=== PATIENT | female | born 1995 | race Caucasian/White ===

== ENCOUNTER 2022-11-12 23:23 | Emergency (ER) | payer OTHER, SELFPAY ==
--- NOTE | ~2022-11-12 | US_ITS ---
EXAMINATION: US PELVIS CLINICAL INFORMATION: Right lower quadrant pain for 3 days. LMP 10/29/2022 COMPARISON: None available. TECHNIQUE: Ultrasound of the pelvis is performed using both transabdominal and transvaginal transducers along with Doppler. Transvaginal imaging is performed due to inadequate visualization transabdominally. FINDINGS: Uterus: The uterus is anteverted and measures 8.9 x 4.4 x 6.6 cm. The double wall endometrial thickness is 14 mm. The uterus is smooth in contour and has normal myometrial echogenicity. No visible fibroid. Adnexa: Both ovaries are visualized. There is normal color flow to the adnexa. There is no ovarian torsion. There is no pelvic ascites or fluid collection. Right ovary measures 3.2 x 2.8 x 2.5 cm. Left ovary measures 4.3 x 1.8 x 2.1 cm. Small pelvic free fluid. US/US pelvic and transvaginal IMPRESSION: Unremarkable pelvic ultrasound.
[2022-11-12 23:39] VITALS: BP 121/85; PULSE 95; RESP 20; TEMP 36.7; O2SAT 100; BMI 22.6
[2022-11-13 00:24] VITALS: BP 124/80; PULSE 96; RESP 16; TEMP 36.6; O2SAT 98
--- OUTSIDE RECORDS SUMMARY | 2022-11-13 00:24 | XMS_ITS | Continuity of Care Document ---
Author Name Unknown Organization [facility] Address [address] [place] [address]- Care Team Providers Care Surgical Dressing Maker Name Role Phone Selene THOMPSON, Casey Hopson Primary Care Physician [phone] Encounter [facility] [place] Date(s): 04/26/22 - 05/26/[address] [address]- Allergies, Adverse Reactions, Alerts Substance Reaction Severity Status Seafood Hives Active Immunizations Given and Recorded Vaccine Date Status Refusal Reason influenza virus vaccine, inactivated 03/10/20 Give n tetanus/diphtheria/pertussis, acel(Tdap) 02/10/20 Given tetanus/diphtheria/pertussis, acel(Tdap) 07/07/16 Given Medications Colace sodium 100 mg oral capsule 100 mg, 1, capsule, By Mouth, 2 times a day, PRN, # 20 capsule, Refills 0, Tot. Refills 0, Maintenance, for constipation, 08/17/20 14:48:00 EDT, Route to Pharmacy Electronically, [facility]/pharmacy #[id number], Partial fill upon patient request if the prescriptio... Start Date: 08/17/20 Status: Ordered fluconazole 150 mg oral tablet 1 tablet = 150 mg, By Mouth, Once, epeat dose if still having symptoms in 72 hours, # 2 tablet, 0 Refills, Soft Stop, 05/05/22 15:03:00 EST, Tablet, [id number], Partial fill upon patient request if the prescription is for a schedule II opioid... Start Date: 05/05/22 Status: Ordered ibuprofen 800 mg oral tablet 800 mg, 1, tablet, By Mouth, Every 6 hours, not to exceed 3200 mg/day with food or milk, # 40 tablet, Refills 0, Tot. Refills 0, Maintenance, 08/17/20 14:48:00 EDT, Route to Pharmacy Electronically, [facility]/pharmacy #[id number], Partial fill upon patient reque... Start Date: 08/17/20 Status: Ordered oxyCODONE 5 mg oral tablet 5 mg, 1, tablet, By Mouth, Every 6 hours, PRN, for post-operative pain if needed, # 10 tablet, Refills 0, Tot. Refills 0, Maintenance, as needed for pain, 08/17/20 14:48:00 EDT, Route to [facility]acy [facility]ically, [id number], Partial fill upon p... Start Date: 08/17/20 Status: Ordered Multivitamins with Folic Acid 1 mg oral tablet 1 tablet, By Mouth, Daily, # 90 tablet, 3 Refills, Maintenance, 11/12/19 11:02:00 EDT, Tablet, [id number], 1 tablet By Mouth Daily, 151.2, cm, 06/24/19 9:10:00 EST, Height, 70.5, kg, 197:15:00 EST, Dry Weight Start Date: 11/12/19 Status: Ordered Multivitamins with Vitamin B Complex, Vitamin C, Minerals and L- Methylfolate oral capsule 1 capsule, By Mouth, Daily, # 30 capsule, 0 Refills, Maintenance, 03/19/19 18:45:22 EDT, Capsule, 1capsule By Mouth Daily Start Date: 03/19/19 Status: Ordered Tylenol 325 mg oral tablet 650 mg, 2, tablet, By Mouth, Every 4 hours, PRN, not to exceed 4000 mg/day, # 120 tablet, Refills 0, Tot. Refills 0, Maintenance, for pain, 08/17/20 14:48:00 EDT, Route to Pharmacy Electronically, [id number], Partial fill upon patient request... Start Date: 08/17/20 Status: Ordered Problem List Condition Confirmation Course Effective Dates Status Health St atus Informant of family member Confirmed Active H/O Hypothyroid 1 Confirmed Active Maternal varicella, non-immune Confirmed Active 1Patient states hypothyroid with past , bloodwork done PCP and states it is resolved. Not currently on medication. Social History Social History Type Response Smoking Status Never (less than 100 in lifetime) entered on: 12/01/19 Sex Patient Care team information Care Team Personnel Name: Stephy Alcazar NP Position: Reference Physician Member Role: Primary Care Nurse Care Team Related Persons Name: KATELIN SINGLETONET Address: home [address] [place] [address] Name: NITESH RODRIGUEZ Address: [address] Address: [address] Name: CLAY SANCHEZ Address: [address] [place] [address]
--- OUTSIDE RECORDS SUMMARY | 2022-11-13 00:24 | XMS_ITS | Continuity of Care Document ---
Author Name Unknown Organization [facility] Address [address] [place] [address]- Care Team Providers Care Nutrition Manager Name Role Phone Not on Staff, PCP Primary Care Physician Unavail able Encounter [facility] Date(s): 05/27/19 - 05/27/[address] [address]- [facility] Discharge Disposition: A-D/C Home Attending Physician: Annia Arango MD Admitting Physician: Annia Arango MD Referring Physician: Annia Arango MD Allergies, Adverse Reactions, Alerts Substance Reaction Severity Status Seafood Active Immunizations Given and Recorded Vaccine Date Status Refusal Reason tetanus/diphtheria/pertussis, acel(Tdap) 07/07/16 Given Medications levothyroxine 0.05 mg oral tablet 1 tablet = 50 mcg, By Mouth, Daily, # 90 tablet, 0 Refills, Maintenance, 05/12/19 11:11:46 EST, Tablet, 148, cm, 05/12/19 10:30:25 EST, Height, 68, kg, 10/22/18 23:05:01 EDT, Dry Weight Start Date: 05/12/19 Status: Ordered Multivitamins with Vitamin B Complex, Vitamin C, Minerals and L- Methylfolate oral capsule 1 capsule, By Mouth, Daily, # 30 capsule, 0 Refills, Maintenance, 03/19/19 18:45:22 EDT, Capsule, 1capsule By Mouth Daily Start Date: 03/19/19 Status: Ordered Problem List Condition Effective Dates Status Health Status Inform ant Acute lower UTI(Confirmed) Active Ovarian cyst(Confirmed) Active First trimester bleeding(Confirmed) Active Hypothyroid(Confirmed) Active Maternal varicella, non-immune(Confirmed) Active Vital Signs Most recent to oldest [Reference Range]: 1 Height 148 cm (05/27/19 5:08 PM) Oxygen Saturation [94-100 %] 100 % (05/27/19 5:08 PM) Pulse Rate [55-90 bpm] 90 bpm (05/27/19 5:08 PM) Blood Pressure [90-138/55-84 mm Hg] 120/ 85mm Hg (05/27/19 5:08 PM) Respiratory Rate [16-30 br/min] 18 br/mi n (05/27/19 5:08 PM) Temperature [96.8-100.4 DegF] 98.2 DegF (05/27/19 5:08 PM) Mode of Delivery (Oxygen) Room air (05/27/19 5:08 PM) Blood pressure sites Arm, left (05/27/19 5:08 PM) Temperature Route Oral (05/27/19 5:08 PM) Social History Social History Type Response Smoking Status Never (less than 100 in lifetime); Tobacco user in household: No entered on: 04/16/18 Sex Female
--- OUTSIDE RECORDS SUMMARY | 2022-11-13 00:24 | XMS_ITS | Continuity of Care Document ---
Author Name Unknown Organization [facility] Address [address] [place] [address]- Care Team Providers Care Court Magistrate Name Role Phone Brenda Abdi MD Primary Care Physician Encounter [facility] [place] Date(s): 06/24/19 - 10/22/[address] [address]- [facility] Attending Physician: Not on Staff, Attending MD Referring Physician: Brenda Abdi MD Allergies, Adverse Reactions, Alerts Substance Reaction Severity Status Seafood Active Immunizations Given and Recorded Vaccine Date Status Refusal Reason tetanus/diphtheria/pertussis, acel(Tdap) 07/07/16 Given Medications Apri 0.15 mg-0.03 mg oral tablet 1 tablet, By Mouth, Daily, # 28 tablet, 11 Refills, Maintenance, 06/24/19 9:34:00 EST, Tablet, [id number], 1 tablet By Mouth Daily,x28 days, 151.2, cm, 06/24/19 9:10:00 EST, Height, 70.5, kg,05/28/19 7:15:00 EST, Dry Weight Start Date: 06/24/19 Stop Date: 05/25/20 Status: Ordered Multivitamins with Vitamin B Complex, Vitamin C, Minerals and L- Methylfolate oral capsule 1 capsule, By Mouth, Daily, # 30 capsule, 0 Refills, Maintenance, 03/19/19 18:45:22 EDT, Capsule, 1capsule By Mouth Daily Start Date: 03/19/19 Status: Ordered Problem List Condition Effective Dates Status Health Status Inform ant Acute lower UTI(Confirmed) Active Contraception management(Confirmed) Active Ovarian cyst(Confirmed) Active First trimester bleeding(Confirmed) Active Hypothyroid(Confirmed) Active Recurrent loss(Confirmed) Active Maternal varicella, non-immune(Confirmed) Active Social History Social History Type Response Smoking Status Never (less than 100 in lifetime); Tobacco user in household: No entered on: 04/16/18 Sex Female
--- OUTSIDE RECORDS SUMMARY | 2022-11-13 00:24 | XMS_ITS | Continuity of Care Document ---
Author Name Unknown Organization [facility] Address [address] [place] [address]- Care Team Providers Care Private Detective Name Role Phone Selene THOMPSON, Casey Hopson Primary Care Physician Encounter [facility] [place] Date(s): 05/02/22 - 06/01/[address] [address]- Attending Physician: Admsavita, Bo8 Admitting Physician: AdmtrVamsi Referring Physician: Admtr, Ar8 Allergies, Adverse Reactions, Alerts Substance Reaction Severity [...] 08/17/20 14:48:00 EDT, Route to Pharmacy Electronically, [facility]/pharmacy #[id number], Partial fill upon patient request if the prescriptio... Start Date: 08/17/20 Status: Ordered fluconazole 150 mg oral tablet 1 tablet = 150 mg, By Mouth, Once, epeat dose if still having symptoms in 72 hours, # 2 tablet, 0 Refills, Soft Stop, 05/05/22 15:03:00 EST, Tablet, [id number], Partial fill upon patient request if the prescription is for a schedule II opioid... Start Date: 05/05/22 Status: Ordered ibuprofen 800 mg oral tablet 800 mg, 1, tablet, By Mouth, Every 6 hours, not to exceed 3200 mg/day with food or milk, # 40 tablet, Refills 0, Tot. Refills 0, Maintenance, 08/17/20 14:48:00 EDT, Route to Pharmacy Electronically, [facility]/pharmacy #[id number], Partial fill upon patient reque... [...] cm, 06/24/19 9:10:00 EST, Height, 70.5, kg, :15:00 EST, Dry Weight Start Date: 11/12/19 Status: [...] 08/17/20 14:48:00 EDT, Route to Pharmacy Electronically, [facility]/pharmacy #[id number], Partial fill upon patient request... Start [...] Care Nurse Care Team Related Persons Name: SINGLETON FEDERICO Address: [address] [place] [address] Name: NITESH RODRIGUEZ Address: [address] Address: [address] Name: CLAY SANCHEZ Address: [address] [place] [address]
--- OUTSIDE RECORDS SUMMARY | 2022-11-13 00:24 | XMS_ITS | Continuity of Care Document ---
Author Name Unknown Organization [facility] Address [address] [place] [address]- Care Team Providers Care Net Lead Developer Name Role Phone Brenda Abdi MD Primary Care Physician [phone] Encounter [facility] Date(s): 12/15/19 - 01/14/20 [facility] [address] [place] [address]- [facility] Attending Physician: Corey Montez MD Admitting Physician: Corey Montez MD Referring Physician: Tanja Nova CNM Allergies, Adverse Reactions, Alerts Substance Reaction Severity Status Seafood Hives Active Immunizations Given and Recorded Vaccine Date Status Refusal Reason tetanus/diphtheria/pertussis, acel(Tdap) 07/07/16 Given Medications Multivitamins with Folic Acid 1 mg oral [...] Effective Dates Status Health Status Inform ant H/O Hypothyroid(Confirmed) 1 Active Recurrent loss(Confirmed) Active Maternal varicella, non-immune(Confirmed) Active 1Patient states hypothyroid with past , bloodwork done PCP and states it is resolved. Not currently on medication. Social History Social History Type Response Smoking Status Never (less than 100 in lifetime) entered on: 12/01/19 Sex Female
--- OUTSIDE RECORDS SUMMARY | 2022-11-13 00:24 | XMS_ITS | Continuity of Care Document ---
Author Name Unknown Organization [facility] Address [address] [place] [address]- Care Team Providers Care Technical Product Manager Name Role Phone Brenda Abdi MD Primary Care Physician En[place] [facility] [place] Date(s): 09/18/19 - 01/16/20 [facility] [address] [address]- [facility] Attending Physician: Not on Staff, Attending MD [...]
--- OUTSIDE RECORDS SUMMARY | 2022-11-13 00:25 | XMS_ITS | Continuity of Care Document ---
Author Name Unknown Organization [facility] Address [address] [place] [address]- Care Team Providers Care Cylinder Die Machine Helper Name Role Phone Not on Staff, PCP Primary Care Physician Unavail able Encounter [facility] Date(s): 05/28/19 - 05/28/[address] [address]- [facility] Discharge Disposition: A-D/C Home Attending Physician: Mitch Cabrera MD Admitting Physician: Mitch Cabrera MD Referring Physician: Mitch Cabrera MD Allergies, Adverse Reactions, Alerts Substance Reaction [...] Most recent to oldest [Reference Range]: 1 2 3 Height 151.2 cm (05/28/19 7:15 AM) Weight 70.5 kg (05/28/19 7:15 AM) Oxygen Saturation [94-100 %] 99 % (05/28/19 9:15 AM) 99 % (05/28/19 9:00 AM) 98 % (05/28/19 8:45 AM) Pulse Rate [55-90 bpm] 74 bpm (05/28/19 9:15 AM) 74 bpm (05/28/19 9:00 AM) 76 bpm (05/28/19 8:45 AM) Body Mass Index [18.5-24.99] 30.84 *>HHI* (05/28/19 7:15 AM) Blood Pressure [90-138/55-84 mm Hg] 97/58mm Hg (05/28/19 9:15 AM) 97/58mm Hg (05/28/19 9:00 AM) 100/67mm Hg (05/28/19 8:45 AM) Respiratory Rate [16-30 br/min] 18 br/min (05/28/19 9:15 AM) 16 br/min (05/28/19 9:00 AM) 18 br/min (05/28/19 8:45 AM) Temperature [96.8-100.4 DegF] 97.1 DegF (05/28/19 8:30 AM) 97.4 DegF (05/28/19 8:12 AM) 97.8 DegF (05/28/19 7:15 AM) Liters per Minute 5 L/min (05/28/19 8:15 AM) 5 L/min (05/28/19 8:12 AM) Mode of Delivery (Oxygen) Room air (05/28/19 9:15 AM) Room air (05/28/19 9:00 AM) Room air (05/28/19 8:45 AM) Blood pressure sites Arm, left (05/28/19 7:15 AM) Temperature Route Temporal (05/28/19 8:30 AM) Temporal (05/28/19 8:12 AM) Temporal (05/28/19 7:15 AM) Dry Weight 70.5 kg (05/28/19 7:15 AM) Weight Obtained Via Standing scale (05/28/19 7:15 AM) Dry Weight Obtained Via Standing scale (05/28/19 7:15 AM) Social History Social History Type Response Smoking Status Never (less than 100 in lifetime); Tobacco user in household: No entered on: 04/16/18 Sex Female
--- OUTSIDE RECORDS SUMMARY | 2022-11-13 00:25 | XMS_ITS | Continuity of Care Document ---
Author Name Unknown Organization [facility] Address [address] [place] [address]- Care Team Providers Care Traffic Incident Management Manager Name Role Phone Selene THOMPSON, Casey Hopson Primary Care Physician [place] [facility] [place] 04/26/22 - 05/29/[address] [address]- Attending Physician: Not on Staff, Attending MD Allergies, Adverse Reactions, Alerts Substance Reaction [...] 08/17/20 14:48:00 EDT, Route to Pharmacy Electronically, [facility]/pharmacy #[id number], Partial fill upon patient request if the prescriptio... Start Date: 08/17/20 Status: Ordered fluconazole 150 mg oral tablet 1 tablet = 150 mg, By Mouth, Once, epeat dose if still having symptoms in 72 hours, # 2 tablet, 0 Refills, Soft Stop, 05/05/22 15:03:00 EST, Tablet, [facility]/pharmacy #[id number], Partial fill upon patient request if the prescription is for a schedule II opioid... Start Date: 05/05/22 Status: Ordered ibuprofen 800 mg oral tablet 800 mg, 1, tablet, By Mouth, Every 6 hours, not to exceed 3200 mg/day with food or milk, # 40 tablet, Refills 0, Tot. Refills 0, Maintenance, 08/17/20 14:48:00 EDT, Route to Pharmacy Electronically, [facility]/pharmacy #[id number], Partial fill upon patient reque... Start [...] 3 Refills, Maintenance, 11/12/19 11:02:00 EDT, Tablet, [facility]/pharmacy #[id number], 1 tablet By Mouth Daily, 151.2, cm, 06/24/19 9:10:00 EST, Height, 70.5, kg, 05/28/197:15:00 EST, Dry Weight Start Date: 11/12/19 Status: [...] 08/17/20 14:48:00 EDT, Route to Pharmacy Electronically, [facility]/pharmacy #[id number], Partial fill upon patient request... Start [...] Care Nurse Care Team Related Persons Name: FEDERICO SINGLETON Address: [address] [place] [address] Name: NITESH RODRIGUEZ Address: [address] Address: [address] Name: CLAY SANCHEZ Address: [address] [place] [address]
--- OUTSIDE RECORDS SUMMARY | 2022-11-13 00:25 | XMS_ITS | Continuity of Care Document ---
Author Name Unknown Organization [facility] Address [address] [place] [address]- Care Team Providers Care Carpenter Helper Maintenance Name Role Phone Brenda Abdi MD Primary Care Physician Encounter [facility] [place] Date(s): 12/15/19 - 01/14/20 [facility] [address] [place] [address]- [facility] Attending Physician: Vamsi Busch Admitting Physician: AdmVamsi barney Referring Physician: AdmtrVamsi Allergies, Adverse Reactions, Alerts Substance Reaction Severity Status Seafood Hives Active Immunizations Given and Recorded Vaccine Date Status Refusal Reason tetanus/diphtheria/pertussis, acel(Tdap) 07/07/16 Given Medications Multivitamins with Folic Acid 1 mg oral tablet 1 tablet, By Mouth, Daily, # 90 tablet, 3 Refills, Maintenance, 11/12/19 11:02:00 EDT, Tablet, [id number], 1 tablet By Mouth Daily, 151.2, cm, [...]
--- OUTSIDE RECORDS SUMMARY | 2022-11-13 00:25 | XMS_ITS | Continuity of Care Document ---
Author Name Unknown Organization [facility] Address [address] [place] [address]- Care Team Providers Care Picker Feeder Name Role Phone Brenda Abdi MD Primary Care Physician [place] [facility] [place] Date(s): 05/19/19 - 06/26/[address] [address]- [facility] Attending Physician: Not on Staff, Attending [...]
--- OUTSIDE RECORDS SUMMARY | 2022-11-13 00:25 | XMS_ITS | Continuity of Care Document ---
Author Name Unknown Organization [facility] Address [address] [place] [address]- Care Team Providers Care Sports Medicine Specialist Name Role Phone Not on Staff, PCP Primary Care Physician Unavail able Encounter [facility] Date(s): 06/07/19 - 06/07/[address] [address]- [facility] Attending Physician: Deborah THOMPSON, Mitch Mendoza Allergies, Adverse Reactions, Alerts Substance Reaction Severity [...] Active Hypothyroid(Confirmed) Active Maternal varicella, non-immune(Confirmed) Active Social History Social History Type Response Smoking Status Never (less than 100 in lifetime); Tobacco user in household: No entered on: 04/16/18 Sex Female
--- OUTSIDE RECORDS SUMMARY | 2022-11-13 00:25 | XMS_ITS | Continuity of Care Document ---
Author Name Unknown Organization [facility] Address [address] [place] [address]- Care Team Providers Care Olive Knocker Name Role Phone Brenda Abdi MD Primary Care Physician Encounter [facility] [place] Date(s): 06/09/19 - 06/19/19 [facility] [address] [address]- [facility] Attending Physician: Vamsi Busch Admitting Physician: Vamsi Busch Referring Physician: Vamsi Busch Allergies, Adverse Reactions, Alerts Substance Reaction Severity [...]
--- OUTSIDE RECORDS SUMMARY | 2022-11-13 00:25 | XMS_ITS | Continuity of Care Document ---
Author Name Unknown Organization [facility] Address [address] [place] [address]- Care Team Providers Care Microwave Radio Technician Name Role Phone Selene THOMPSON, Casey Hopson Primary Care Physician Encounter [facility] [place] Date(s): 04/10/22 - 05/10/[address] [address]- Allergies, Adverse Reactions, Alerts Substance Reaction Severity [...] 08/17/20 14:48:00 EDT, Route to Pharmacy Electronically, [facility]/pharmacy #[id number], Partial fill upon patient request if the prescriptio... Start Date: 08/17/20 Status: Ordered fluconazole 150 mg oral tablet 1 tablet = 150 mg, By Mouth, Once, epeat dose if still having symptoms in 72 hours, # 2 tablet, 0 Refills, Soft Stop, 05/05/22 15:03:00 EST, Tablet, [id number], Partial fill upon patient request if the prescription is for a schedule II opioid... Start Date: 05/05/22 Status: Ordered ibuprofen 800 mg oral tablet 800 mg, 1, tablet, By Mouth, Every 6 hours, not to exceed 3200 mg/day with food or milk, # 40 tablet, Refills 0, Tot. Refills 0, Maintenance, 08/17/20 14:48:00 EDT, Route to Pharmacy Electronically, [facility]/pharmacy #[id number], Partial fill upon patient reque... Start Date: 08/17/20 Status: Ordered metroNIDAZOLE 500 mg oral tablet 1 tablet = 500 mg, By Mouth, Every 12 hours, for 7 days, # 14 tablet, 0 Refills, Acute 05/12/22 15:03:00 EST, 05/05/22 15:03:00 EST, Tablet, [facility]/pharmacy #[id number], Partial fill upon patient request if the prescription is for a schedule II opioid drug., 1... Start Date: 05/05/22 Stop Date: 05/12/22 Status: Ordered oxyCODONE 5 mg oral tablet 5 mg, 1, tablet, By Mouth, Every 6 hours, PRN, for post-operative pain if needed, # 10 tablet, Refills 0, Tot. Refills 0, Maintenance, as needed for pain, 08/17/20 14:48:00 EDT, Route to Pharmacy Electronically, [facility]/pharmacy #[id number], Partial fill upon p... Start Date: 08/17/20 Status: Ordered Multivitamins with Folic Acid 1 mg oral tablet 1 tablet, By Mouth, Daily, # 90 tablet, 3 Refills, Maintenance, 11/12/19 11:02:00 EDT, Tablet, [facility]/pharmacy #[id number], 1 tablet By Mouth Daily, [...] 08/17/20 14:48:00 EDT, Route to Pharmacy Electronically, [facility]/pharmacy #[id number], Partial fill upon patient request... Start Date: [...] Persons Name: FEDERICO SINGLETON Address: home [address] [place] [address] Name: NITESH RODRIGUEZ Address: [address] Address: [address] Name: CLAY SANCHEZ Address: [address] [place] [address]
--- OUTSIDE RECORDS SUMMARY | 2022-11-13 00:25 | XMS_ITS | Continuity of Care Document ---
Author Name Unknown Organization [facility] Address [address] [address]- Care Team Providers Care Phd Internship Name Role Phone Selene THOMPSON, Casey Hopson Primary Care Physician Encounter [facility] [place] [facility] Date(s): 05/05/22 - 06/04/22 [facility] [address] [address]- Allergies, Adverse Reactions, Alerts Substance Reaction Severity [...] 08/17/20 14:48:00 EDT, Route to Pharmacy Electronically, [facility]/pharmacy #[id number], Partial fill upon patient request if the prescriptio... Start Date: 08/17/20 Status: Ordered fluconazole 150 mg oral tablet 1 tablet = 150 mg, By Mouth, Once, epeat dose if still having symptoms in 72 hours, # 2 tablet, 0 Refills, Soft Stop, 05/05/22 15:03:00 EST, Tablet, [id number], Partial fill upon patient request if the prescription is for a schedule II opioid... Start Date: 05/05/22 Status: Ordered ibuprofen 800 mg oral tablet 800 mg, 1, tablet, By Mouth, Every 6 hours, not to exceed 3200 mg/day with food or milk, # 40 tablet, Refills 0, Tot. Refills 0, Maintenance, 08/17/20 14:48:00 EDT, Route to Pharmacy Electronically, [facility]/pharmacy #[id number], Partial fill upon patient [...] 08/17/20 14:48:00 EDT, Route to Pharmacy Electronically, [facility]/pharmacy #[id number], Partial fill upon patient [...] Persons Name: SINGLETON FEDERICO Address: home [address] [place] [address] Name: NITESH RODRIGUEZ Address: [address] Address: [address] Name: CLAY SANCHEZ Address: [address] [place] [address]
--- OUTSIDE RECORDS SUMMARY | 2022-11-13 00:25 | XMS_ITS | Continuity of Care Document ---
Author Name Unknown Organization [facility] Address [address] [place] [address]- Care Team Providers Care Sample Color Maker Name Role Phone Brenda Abdi MD Primary Care Physician Encounter [facility] Date(s): 12/16/19 - [facility] [address] [address]- [facility] Allergies, Adverse Reactions, Alerts Substance Reaction Severity [...]
--- OUTSIDE RECORDS SUMMARY | 2022-11-13 00:25 | XMS_ITS | Continuity of Care Document ---
Author Name Unknown Organization [facility] Address [address] [place] [address]- Care Team Providers Care Frame Expander Name Role Phone Brenda Abdi MD Primary Care Physician [place] [facility] [place](s[place] 09/22/19 - 10/22/[address] [address]- [facility] Attending Physician: Vamsi Busch Admitting Physician: Vamsi Busch Referring Physician: Vamsi Busch Allergies, Adverse Reactions, Alerts Substance Reaction Severity Status Seafood Active Immunizations Given and Recorded Vaccine Date Status Refusal Reason tetanus/diphtheria/pertussis, acel(Tdap) 07/07/16 Given Medications Apri 0.15 mg-0.03 mg oral tablet 1 tablet, By Mouth, Daily, # 28 tablet, 11 Refills, Maintenance, 06/24/19 9:34:00 EST, Tablet, [id number], 1 tablet By Mouth Daily,x28 days, 151.2, [...]
--- OUTSIDE RECORDS SUMMARY | 2022-11-13 00:25 | XMS_ITS | Continuity of Care Document ---
Author Name Unknown Organization [facility] Address [address] [place] [phone]- Care Team Providers Care Senior Mortgage Loan Processor Name Role Phone Selene THOMPSON, Casey Hopson Primary Care Physician Encounter [facility] Date(s): 02/22/21 - 03/24/[address] [address]- Allergies, Adverse Reactions, Alerts Substance Reaction Severity [...] 14:48:00 EDT, Route to Pharmacy Electronically, [facility]/pharmacy #[id number], Partial fill upon patient request if the prescriptio... Start Date: 08/17/20 Status: Ordered ibuprofen 800 mg oral tablet 800 mg, 1, tablet, By Mouth, Every 6 hours, not to exceed 3200 mg/day with food or milk, # 40 tablet, Refills 0, Tot. Refills 0, Maintenance, 08/17/20 14:48:00 EDT, Route to Pharmacy Electronically, [facility]/pharmacy #[id number], Partial fill upon patient reque... Start Date: 08/17/20 Status: Ordered oxyCODONE 5 mg oral tablet 5 mg, 1, tablet, By Mouth, Every 6 hours, PRN, for post-operative pain if needed, # 10 tablet, Refills 0, Tot. Refills 0, Maintenance, as needed for pain, 08/17/20 14:48:00 EDT, Route to Pharmacy Electronically, [facility]/pharmacy #[id number], Partial fill upon p... Start Date: 08/17/20 Status: Ordered Multivitamins with Folic Acid 1 mg oral tablet 1 tablet, By Mouth, Daily, # 90 tablet, 3 Refills, Maintenance, 11/12/19 11:02:00 EDT, Tablet, [facility]/pharmacy #[id number], 1 tablet By Mouth Daily, 151.2, [...] 14:48:00 EDT, Route to Pharmacy Electronically, [facility]/pharmacy #[id number], Partial fill upon patient request... Start Date: 08/17/20 Status: Ordered Problem List Condition Effective Dates Status Health Status Inform ant of family member(Confirmed) Active H/O Hypothyroid(Confirmed) 1 Active Maternal varicella, non-immune(Confirmed) Active 1Patient states hypothyroid with past , bloodwork done PCP and states it is resolved. Not currently on medication. Social History Social History Type Response Smoking Status Never (less than 100 in lifetime) entered on: 12/01/19 Sex
--- OUTSIDE RECORDS SUMMARY | 2022-11-13 00:25 | XMS_ITS | Continuity of Care Document ---
Author Name Unknown Organization [facility] Address [address] [place] [address]- Care Team Providers Care Nuclear Fuels Research Engineer Name Role Phone Selene THOMPSON, Casey Hopson Primary Care Physician [place] [facility] [place] 08/30/20 - 09/29/[address] [address]- Attending Physician: Vamsi Busch Admitting Physician: AdmtrVamsi Referring Physician: Admtr, [id number] [...] [id number], Partial fill upon p... Start [...] family member(Confirmed) Active H/O Hypothyroid(Confirmed) 1 Active Request for sterilization(Confirmed) Active Maternal varicella, non-immune(Confirmed) Active 1Patient states hypothyroid with past , bloodwork done PCP and states it is resolved. Not currently on medication. Social History Social History Type Response Smoking Status Never (less than 100 in lifetime) entered on: 12/01/19 Sex
--- OUTSIDE RECORDS SUMMARY | 2022-11-13 00:25 | XMS_ITS | Continuity of Care Document ---
Author Name Unknown Organization [facility] Address [address] [place] [address]- Care Team Providers Care Refinisher Name Role Phone Brenda Abdi MD Primary Care Physician Encounter [facility] [place] Date(s): 06/05/19 - 10/03/[address] [address]- [facility] Attending Physician: Not on Staff, Attending [...]
--- OUTSIDE RECORDS SUMMARY | 2022-11-13 00:25 | XMS_ITS | Continuity of Care Document ---
Author Name Unknown Organization [facility] Address [address] [place] [address]- Care Team Providers Care Equipment Engineering Technician Name Role Phone Selene THOMPSON, Casey Hopson Primary Care Physician Encounter [facility] Date(s): 03/01/21 - 03/31/[address] [address] Attending Physician: AdmVamsi barney Admitting Physician: AdmtrVamsi Referring Physician: Admtr, [id number] [...] 08/17/20 14:48:00 EDT, Route to Pharmacy Electronically, [facility]/pharmacy #[id number], Partial fill upon patient request if the prescriptio... Start Date: 08/17/20 Status: Ordered ibuprofen 800 mg oral tablet 800 mg, 1, tablet, By Mouth, Every 6 hours, not to exceed 3200 mg/day with food or milk, # 40 tablet, Refills 0, Tot. Refills 0, Maintenance, 08/17/20 14:48:00 EDT, Route to Pharmacy Electronically, [facility]/pharmacy #[id number], Partial fill upon patient reque... Start Date: 08/17/20 Status: Ordered oxyCODONE 5 mg oral tablet 5 mg, 1, tablet, By Mouth, Every 6 hours, PRN, for post-operative pain if needed, # 10 tablet, Refills 0, Tot. Refills 0, Maintenance, as needed for pain, 08/17/20 14:48:00 EDT, Route to Pharmacy Electronically, [facility]/pharmacy #[id number], Partial fill upon p... Start [...] 08/17/20 14:48:00 EDT, Route to Pharmacy Electronically, [facility]/pharmacy #[id number], Partial fill upon patient request... [...]
--- OUTSIDE RECORDS SUMMARY | 2022-11-13 00:25 | XMS_ITS | Continuity of Care Document ---
Author Name Unknown Organization [facility] Address [address] [place] [phone]- Care Team Providers Care Civil Division Deputy Sheriff Name Role Phone Selene THOMPSON, Casey Hopson Primary Care Physician En[place] [facility] [place] Date(s): 04/10/22 - 05/15/[address] [address]- Attending Physician: Not on Staff, Attending MD [...] 08/17/20 14:48:00 EDT, Route to Pharmacy Electronically, [facility]/pharmacy #[id number], Partial fill upon patient request if the prescriptio... Start Date: 08/17/20 Status: Ordered fluconazole 150 mg oral tablet 1 tablet = 150 mg, By Mouth, Once, epeat dose if still having symptoms in 72 hours, # 2 tablet, 0 Refills, Soft Stop, 05/05/22 15:03:00 EST, Tablet, [facility]/pharmacy #[id number], Partial fill upon patient request if the prescription is for a schedule II opioid... Start Date: 05/05/22 Status: Ordered ibuprofen 800 mg oral tablet 800 mg, 1, tablet, By Mouth, Every 6 hours, not to exceed 3200 mg/day with food or milk, # 40 tablet, Refills 0, Tot. Refills 0, Maintenance, 08/17/20 14:48:00 EDT, Route to Pharmacy Electronically, [facility]/pharmacy #[id number], Partial fill upon patient reque... Start [...] 3 Refills, Maintenance, 11/12/19 11:02:00 EDT, Tablet, [facility]/pharmacy #[id number], 1 tablet By Mouth Daily, 151.2, [...] 08/17/20 14:48:00 EDT, Route to Pharmacy Electronically, [facility]/pharmacy #[id number], Partial fill upon patient request... Start [...] Persons Name: FEDERICO SINGLETON Address: [address] [place] [address] Name: NITESH RODRIGUEZ Address: [address] Address: home [address] Name: CLAY SANCHEZ Address: [address] [place] [address]
--- OUTSIDE RECORDS SUMMARY | 2022-11-13 00:25 | XMS_ITS | Continuity of Care Document ---
Author Name Unknown Organization [facility] Address [address] [place] [phone]- Care Team Providers Care Health Care Social Worker Name Role Phone Casey Morton MD Primary Care Physician Encounter [facility] Date(s): 08/17/20 - 08/17/[address] [address] Discharge Disposition: A-D/C Home Attending Physician: Karol Nicholson MD Admitting Physician: Karol Nicholson MD Referring Physician: Karol Nicholson MD Allergies, Adverse Reactions, Alerts Substance Reaction [...] 08/17/20 14:48:00 EDT, Route to Pharmacy Electronically, [facility]/pharmacy #[id number], Partial fill upon patient request if the prescriptio... Start Date: 08/17/20 Status: Ordered FENTanyl Inj 25 mcg, Injection, IV Push Slowly, Every 5 minutes for 8 doses/times, in PACU ONLY, Hold for: RR less than 8 or over-sedation, PRN for Pain , Moderate, Repeat until Pain Score is less than or equal to 2, Routine, 08/17/20 15:51:00 EDT, Stop date Limit... Start Date: 08/17/20 Stop Date: 08/18/20 Status: Discontinued ibuprofen 800 mg oral tablet 800 mg, 1, tablet, By Mouth, Every 6 hours, not to exceed 3200 mg/day with food or milk, # 40 tablet, Refills 0, Tot. Refills 0, Maintenance, 08/17/20 14:48:00 EDT, [id number] upon patient reque... Start Date: 08/17/20 Status: Ordered oxyCODONE 5 mg oral tablet 5 mg, 1, tablet, By Mouth, Every 6 hours, PRN, for post-operative pain if needed, # 10 tablet, Refills 0, Tot. Refills 0, Maintenance, as needed for pain, 08/17/20 14:48:00 EDT, [id number] fill upon p... Start Date: 08/17/20 Status: Ordered OxyCODONE IR Tablet 5 mg, Tablet, By Mouth, Every 4 hours, in PACU ONLY, if patient can tolerate PO, PRN for Pain , Mild, Routine, 08/17/20 15:51:00 EDT Start Date: 08/17/20 Stop Date: 08/18/20 Status: Discontinued Multivitamins with Folic Acid 1 mg oral tablet 1 tablet, By Mouth, Daily, # 90 tablet, 3 Refills, Maintenance, 11/12/19 11:02:00 EDT, Tablet, [facility]/pharmacy #[id number], 1 tablet By Mouth Daily, [...] 08/17/20 14:48:00 EDT, Route to Pharmacy Electronically, [facility]/pharmacy #[id number], Partial fill upon patient request... Start Date: 08/17/20 Status: Ordered Problem List Condition Effective Dates Status Health Status Inform ant of family member(Confirmed) Active H/O Hypothyroid(Confirmed) 1 Active Request for sterilization(Confirmed) Active Maternal varicella, non-immune(Confirmed) Active 1Patient states hypothyroid with past , bloodwork done PCP and states it is resolved. Not currently on medication. Vital Signs Most recent to oldest [Reference Range]: 1 2 3 Height 147 cm (08/17/20 2:31 PM) 147 cm (08/10/20 11:17 AM) Weight 68 kg (08/17/20 2:31 PM) 68 kg (08/10/20 11:17 AM) Oxygen Saturation [94-100 %] 100 % (08/17/20 6:30 PM) 100 % (08/17/20 6:15 PM) 98 % (08/17/20 6:00 PM) Pulse Rate [55-90 bpm] 87 bpm (08/17/20 2:31 PM) Body Mass Index [18.5-24.99] 31.47 *>HHI* (08/17/20 2:31 PM) 31.47 *>HHI* (08/10/20 11:17 AM) Blood Pressure [90-138/55-84 mm Hg] 106/69mm Hg (08/17/20 6:30 PM) 116/92mm Hg (08/17/20 6:15 PM) 105/72mm Hg (08/17/20 6:00 PM) Respiratory Rate [16-30 br/min] 20 br/min (08/17/20 6:30 PM) 18 br/min (08/17/20 6:25 PM) 17 br/min (08/17/20 6:05 PM) Temperature [96.8-100.4 DegF] 98.0 DegF (08/17/20 6:30 PM) 97.5 DegF (08/17/20 4:45 PM) 99.7 DegF (08/17/20 2:31 PM) Liters per Minute 5 L/min (08/17/20 5:30 PM) 5 L/min (08/17/20 5:15 PM) 5 L/min (08/17/20 5:00 PM) Mode of Delivery (Oxygen) Room air (08/17/20 6:30 PM) Room air (08/17/20 6:15 PM) Room air (08/17/20 6:00 PM) Temperature Route Temporal (08/17/20 6:30 PM) Temporal (08/17/20 4:45 PM) Temporal (08/17/20 2:31 PM) Dry Weight 66.7 kg (08/17/20 2:31 PM) 68 kg (08/10/20 11:17 AM) Weight Obtained Via Patient/family state d (08/10/20 11:17 AM) Dry Weight Obtained Via Standing scale (08/17/20 2:31 PM) Patient/family stated (08/10/20 11:17 AM) Social History Social History Type Response Smoking Status Never (less than 100 in lifetime) entered on: 12/01/19 Sex
--- NOTE | 2022-11-13 00:32 | MHC.EDTECH ---
PATIENT BLOOD DRAWN ,URINE SAMPLE COLLECTED AND SENT TO LAB ,VITALS SIGN TAKEN .
[2022-11-13 00:37] LABS: Hematocrit 39.6 % (37.0-47.0); Hemoglobin 12.8 g/dl (12.0-16.0); Mean Corpuscular HGB Conc 32.3 g/dl (31.0-35.0); Mean Corpuscular Hemoglobin 27.7 pg (27.0-33.0); Mean Corpuscular Volume 85.7 fL (80.0-98.0); Mean Platelet Volume 10.9 fL (9.4-12.3); Platelet Count 219 X10*3/uL (160-400); Red Blood Count 4.62 X10*6/uL (4.20-5.50); Red Cell Distribution Width 13.4 % (11.0-16.0); White Blood Count 5.5 X10*3/uL (4.8-10.8)
[2022-11-13 00:39] LABS: Appearance Urine Cloudy; Color Urine Yellow; Glucose Urine UA Negative (Negative); Leukocyte Esterase Urine Trace (Negative); Nitrite Urine Negative (Negative); Specific Gravity - Urine 1.025 (1.005-1.025); UMIC TRIGGER UACC YES; Urine Blood Negative (Negative); Urine Ketones Negative (Negative); Urine Protein Negative (Neg-Trace)
[2022-11-13 00:40] LABS: UPreg QC Valid YES; Urine Pregnancy NEGATIVE (NEGATIVE)
[2022-11-13 00:41] LABS: Bacteria Urine 1+ (None Seen); Hyaline Casts Urine 0-2 /LPF (0-2); RBC Urine 0-2 /HPF (0-2); WBC Urine 0-5 /HPF (0-5)
[2022-11-13 00:52] LABS: Alanine Aminotransferase 17 U/L (0-31); Albumin Level 4.1 g/dL (3.5-5.0); Alkaline Phosphatase 61 U/L (39-117); Anion Gap 12 (12-20); Aspartate Amino Transferase 16 U/L (5-31); Bilirubin Total 0.3 mg/dL (0.0-1.0); Blood Urea Nitrogen 12 mg/dL (9-16); Calcium 9.2 mg/dL (8.4-10.2); Carbon Dioxide 26 mmol/L (22-29); Chloride 107 mmol/L (96-108); Creatinine Clr Calc Pharmacy 134.7; Estimated Glomerular Filt Rate > 60; Glucose Random 83 mg/dL (60-115); Lipase 14 U/L (8-78); Sodium 141 mmol/L (135-145); Total Protein 7.4 g/dL (6.5-8.0)
--- NOTE | 2022-11-13 01:01 | ED_ITS ---
HPI - Abdominal Pain General Chief Complaint: Abdominal Pain Stated Complaint: ovary pain Time Seen by Provider: 11/13/22 00:17 Source: patient Mode of arrival: ambulatory Limitations: no limitations History of Present Illness HPI narrative: Patient no significant past medical history no history of ovarian cyst noticed pain in right suprapubic area for last 3 days with sudden onset of pain sharp in character no vaginal discharge no urinary symptoms no nausea no vomiting no diarrhea no fever no chills patient never had similar pain in the past, no vaginal discharge Related Data Previous Rx's Medication Instructions Recorded ibuprofen 600 mg tablet 600 mg PO Q6H PRN fever or pain 11/13/22 #30 tabs Allergies Allergy/AdvReac Type Severity Reaction Status Date / Time seafood Allergy Difficulty Verified 11/13/22 00:44 Breathing shellfish derived Allergy Difficulty Verified 11/13/22 00:44 Breathing Review of Systems Review of Systems Yes all other systems are reviewed and are negative [facility] Social History Social History Alcohol intake: never Smoked in Last 30 Days: No Advance Directives: No Advance Directives Information Provided: No Patient : No (hx tubal ligation) Physical Exam ED Vital Signs: Vital Signs - 24 hr 11/12/22 23:39 11/13/22 00:24 Temperature 98.0 F 97.9 F Pulse Rate 95 96 Respiratory Rate 20 16 Blood Pressure 121/85 124/80 Pulse Oximetry 100 98 Oxygen Delivery Method Room Air Room Air BMI result Body Mass Index 22.6 Appearance: Alert. Oriented X3. No acute distress. ENT: Pharynx normal. Oral Mucosa moist Neck: Normal inspection. Neck supple. CVS: Normal heart rate and rhythm. Pulses normal. Respiratory: No respiratory distress. Equal air entry bilateral, no wheezing/rales/rhonchi Abdomen: Soft , deep tenderness right suprapubic area no rebound tenderness or guarding Bowel sounds are present, no mass palpable, no CVA tenderness Neuro: Oriented X 3. Medical Decision Making Medical Decision Making [facility] Narrative: Patient is in midcycle complaining of pain in right lower abdomen ultrasound negative for any ovarian cyst small amount of fluid likely patient has pain from ovulation Lab Data [facility] Lab Attestation statement: I reviewed the patient's lab results. 11/13/22 00:31 11/13/22 00:31 Labs: Lab Results 11/13/22 11/13/22 11/13/22 Range/Units 00:31 00:31 00:31 WBC 5.5 (4.8-10.8) X10*3/uL RBC 4.62 (4.20-5.50) X10*6/uL Hgb 12.8 (12.0-16.0) g/dl Hct 39.6 (37.0-47.0) % MCV 85.7 (80.0-98.0) fL MCH 27.7 (27.0-33.0) pg MCHC 32.3 (31.0-35.0) g/dl RDW 13.4 (11.0-16.0) % Plt Count 219 (160-400) X10*3/uL MPV 10.9 (9.4-12.3) fL Absolute Nucleated RBC 0.000 (0.0-0.012) X10*3/uL Nucleated RBC % (auto) 0.0 (0.0-0.2) /100WBC Sodium 141 (135-145) mmol/L Potassium 4.0 (3.3-5.1) mmol/L Chloride 107 (96-108) mmol/L Carbon Dioxide 26 (22-29) mmol/L Anion Gap 12 (12-20) BUN 12 (9-16) mg/dL Creatinine 0.69 (0.5-1.4) mg/dL Estim Creat Clear Calc 134.7 Estimated GFR > 60 Random Glucose 83 (60-115) mg/dL Calcium 9.2 (8.4-10.2) mg/dL Total Bilirubin 0.3 (0.0-1.0) mg/dL AST 16 (5-31) U/L ALT 17 (0-31) U/L Alkaline Phosphatase 61 (39-117) U/L Total Protein 7.4 (6.5-8.0) g/dL Albumin 4.1 (3.5-5.0) g/dL Lipase 14 (8-78) U/L Urine Color Yellow Urine Appearance Cloudy Urine pH 7.0 (5.0-9.0) Ur Specific Clarence 1.025 (1.005-1.025) Urine Protein Negative (Neg-Trace) mg/dL Urine Glucose (UA) Negative (Negative) mg/dL Urine Ketones Negative (Negative) mg/dL Urine Blood Negative (Negative) Urine Nitrite Negative (Negative) Ur Leukocyte Esterase Trace H (Negative) Urine RBC 0-2 (0-2) /HPF Urine WBC 0-5 (0-5) /HPF Ur Squamous Epith Cells 11-20 (0-2) /HPF Urine Bacteria 1+ (None Seen) Hyaline Casts 0-2 (0-2) /LPF Urine Test (NEGATIVE) 11/13/22 Range/Units 00:31 WBC (4.8-10.8) X10*3/uL RBC (4.20-5.50) X10*6/uL Hgb (12.0-16.0) g/dl Hct (37.0-47.0) % MCV (80.0-98.0) fL MCH (27.0-33.0) pg MCHC (31.0-35.0) g/dl RDW (11.0-16.0) % Plt Count (160-400) X10*3/uL MPV (9.4-12.3) fL Absolute Nucleated RBC (0.0-0.012) X10*3/uL Nucleated RBC % (auto) (0.0-0.2) /100WBC Sodium (135-145) mmol/L Potassium (3.3-5.1) mmol/L Chloride (96-108) mmol/L Carbon Dioxide (22-29) mmol/L Anion Gap (12-20) BUN (9-16) mg/dL Creatinine (0.5-1.4) mg/dL Estim Creat Clear Calc Estimated GFR Random Glucose (60-115) mg/dL Calcium (8.4-10.2) mg/dL Total Bilirubin (0.0-1.0) mg/dL AST (5-31) U/L ALT (0-31) U/L Alkaline Phosphatase (39-117) U/L Total Protein (6.5-8.0) g/dL Albumin (3.5-5.0) g/dL Lipase (8-78) U/L Urine Color Urine Appearance Urine pH (5.0-9.0) Ur Specific Clarence (1.005-1.025) Urine Protein (Neg-Trace) mg/dL Urine Glucose (UA) (Negative) mg/dL Urine Ketones (Negative) mg/dL Urine Blood (Negative) Urine Nitrite (Negative) Ur Leukocyte Esterase (Negative) Urine RBC (0-2) /HPF Urine WBC (0-5) /HPF Ur Squamous Epith Cells (0-2) /HPF Urine Bacteria (None Seen) Hyaline Casts (0-2) /LPF Urine Test NEGATIVE (NEGATIVE) Medications Administered Discontinued Medications Generic Name Dose Route Start Last Admin Trade Name Freq PRN Reason Stop Dose Admin Ibuprofen 600 mg 11/13/22 00:45 11/13/22 01:34 Ibuprofen 600 Mg Tablet PO 11/13/22 00:46 600 mg ONCE ONE Administration Discharge Plan Discharge Clinical Impression: Aleja Patient Disposition: Home, Self-Care Instructions: Aleja (ED) Additional Instructions: No significant ovarian cyst was seen Likely have pain from ovulation Take ibuprofen for pain Follow-up with semiconductor wafers etch operator if pain continues Prescriptions: New ibuprofen 600 mg tablet 600 mg PO Q6H PRN (Reason: fever or pain) Qty: 30 0RF
[2022-11-13] MEDS: Ibuprofen 600 MG TABLET PO (01:34)
== END 2022-11-13 02:14 | disposition home or self-care (01) ==
PROVIDERS: Emergency Provider Internal Medicine
DX: N94.0 Mittelschmerz (principal); R10.9 Unspecified abdominal pain
CPT/HCPCS: 36415; 76830; 76856; 80053; 81001; 81025; 83690; 85027; 99284